=== PATIENT | male | born 1985 | race African-American/Black ===

== ENCOUNTER 2018-02-21 10:44 | Emergency (ER) | payer SELFPAY ==
[~2018-02-21] VITALS: Ht 177.8 cm; Wt 85.0 kg
[2018-02-21] MEDS ORDERED: ONDANSETRON HCL 4MG/2ML INJ IV STA (11:07)
[2018-02-21] MEDS ORDERED: MORPHINE SULFATE 4 MG/ML CPJ (NOT FOR IM USE) IV STA (11:07)
[2018-02-21] MEDS ORDERED: SODIUM CHLORIDE 0.9% 1,000 ML IV ONE (11:07)
[2018-02-21] MEDS ORDERED: IOHEXOL-350 100 ML BOTTLE ONE (11:59)
[2018-02-21 12:15] VITALS: BP 119/76
[2018-02-21 12:21] LABS: EOSINOPHILS % 2.7 % (0.0-5.0); HEMATOCRIT. 45.2 % (42.0-52.0); HEMOGLOBIN. 14.9 g/dL (14.0-18.0); LYMPHOCYTES % 32.8 % (20.0-50.0); MEAN PLATELET VOLUME 8.2 fl (7.4-10.4); MONOCYTES % 5.7 % (2.0-8.0); NEUTROPHILS % 57.8 % (40.0-76.0); PLATELET 245 x1000/uL (130-400); RED BLOOD CELL COUNT 5.32 mill/uL (4.7-6.1); RED CELL DISTRIBUTION WIDTH 13.8 % (11.6-14.6)
[2018-02-21 12:24] LABS: PROTHROMBIN TIME 9.7 sec (9.1-11.1)
[2018-02-21 12:25] LABS: CHLORIDE 106 mEq/L (98-107)
== END 2018-02-21 15:32 | disposition home or self-care (01) ==
LOC: ER 11:00
DX: M54.2 Cervicalgia (principal); M25.511 Pain in right shoulder; V89.0XXA Person injured in unspecified motor-vehicle accident, nontraffic, initial encounter; Y93.89 Activity, other specified; Y92.89 Other specified places as the place of occurrence of the external cause; Y99.8 Other external cause status
CPT/HCPCS: 36415; 70450; 71260; 72125; 74177; 80053; 83690; 85025; 85610; 96374; 96375; 99285; J2270; J2405; J7030; Q9967; A4315

== ENCOUNTER 2025-01-13 12:22 | Emergency (ER) | payer MEDICAID ==
[~2025-01-13] VITALS: Ht 182.9 cm; Wt 92.9 kg
[2025-01-13 12:30] VITALS: BP 123/87; TEMP 36.9; O2SAT 100
[2025-01-13 12:33] VITALS: PULSE 100; RESP 16; O2SAT 99
== END 2025-01-13 16:32 | disposition left against medical advice (07) ==
LOC: ER 12:22
DX: M79.652 Pain in left thigh (principal); Z53.21 Procedure and treatment not carried out due to patient leaving prior to being seen by health care provider